=== PATIENT | male | born 1935 | race Caucasian/White ===

== ENCOUNTER → 2020-05-21 16:03 | Outpatient (CLI) | payer MEDICARE, OTHER, SELFPAY ==
[2020-05-21 17:46] LABS: Absolute Lymphocyte Count 1.48 X10^3/uL (0.83-4.51); Absolute Neutrophil Count 4.8 X10^3/uL (2.0-7.7); Basophil# 0.08 X10^3/uL; Basophil% 1.1 % (0-1); Eosinophil# 0.37 X10^3/uL; Eosinophils% 4.9 % (0-5); Hematocrit 40.1 % (40-54); Hemoglobin 12.4 g/dL (13.0-16.5); Lymphocyte # 1.48 X10^3/ul (4.0); Lymphocyte % 19.7 % (19-41); Mean Corp Hgb Conc 30.9 g/dL (32-36); Mean Corpuscular Hgb 28.9 pg (27.0-32.0); Mean Corpuscular Volume 93.5 fL (80-94); Mean Platelet Vol. 12.4 fl (6.2-12.0); Monocyte# 0.81 X10^3/uL; Monocyte% 10.8 % (0-10); NRBC Flagged by Analyzer 0 % (0-5); Neutrophil # 4.76 X10^3/uL (2.7-7.7); Neutrophil % 63.2 % (47-70); Platelet Count 210 K/mm3 (150-450); RBC Distribution Width CV 13.2 % (11.6-14.6); Red Blood Count 4.29 M/mm3 (4.6-6.2); White Blood Count 7.5 K/mm3 (4.4-11.0)
[2020-05-21 17:51] LABS: Vitamin D,25 Hydroxy 57.4 ng/mL
[2020-05-21 17:54] LABS: ALB/GLOB Ratio 0.8 RATIO (0.9-2.4); AST(SGOT) 14 U/L (15-37); Alanine Aminotransfer ALT/SGPT 15 U/L (16-61); Albumin, Serum 3.2 g/dL (3.2-5.0); Alkaline Phosphatase 105 U/L (45-117); Anion Gap 2 (5-15); BUN 21 mg/dL (7-18); BUN/Creat Ratio 14.8 RATIO (10-20); Calcium,Total 8.5 mg/dL (8.5-10.1); Chloride 111 mmol/L (98-107); Creatinine, Serum 1.42 mg/dL (0.70-1.30); EST Glomerular Filtration Rate 50 mL/min (>60); Est Glom Filt Rate - Afr Amer 61 mL/min (>60); Globulin 4.1 g/dL (2.2-4.2); Glucose 89 mg/dL (74-106); PSA,Total - Annual Screen 0.91 ng/mL (0.00-4.00); Potassium 4.2 mmol/L (3.5-5.1); Protein, Total 7.3 g/dL (6.4-8.2); Sodium Level 140 mmol/L (136-145); Thyroid Stim Hormone (TSH) 3.45 uIU/mL (0.358-3.74)
== END ==
PROVIDERS: Visit Provider Family Medicine Geriatric Medicine
DX: E55.9 Vitamin D deficiency, unspecified (principal); R53.83 Other fatigue; Z12.5 Encounter for screening for malignant neoplasm of prostate
CPT/HCPCS: 36415; 80053; 82306; 84153; 84443; 85025; G0103

== ENCOUNTER → 2020-06-03 11:19 | Outpatient (CLI) | payer MEDICARE, OTHER, SELFPAY ==
--- NOTE | 2020-06-03 11:24 | RAD_ITS ---
STUDY: X-RAY - LEFT CLAVICLE REASON FOR EXAM: Male, 84 years old. clavicle pain, shoulder pain TECHNIQUE: 2 view(s) of the clavicle. COMPARISON: None. FINDINGS: Normal clavicle. There is degenerative arthrosis of the acromioclavicular joint without inferior osseous prominence. Normal visualized sternoclavicular articulation. Normal visualized pulmonary apex. RAD/Clavicle IMPRESSION: Acromioclavicular osteoarthritis. Electronically Signed: Marco Antonio Gibbons MD at 17:20 EDT Tel , Service support ,
--- NOTE | 2020-06-03 11:25 | RAD_ITS ---
STUDY: X-RAY CHEST REASON FOR EXAM: Male, 84 years old. shortness of breath TECHNIQUE: Frontal and lateral views of the chest. COMPARISON: None. FINDINGS: The lungs are clear and expanded. There is no demonstrated pleural abnormality. Normal size heart. Normal mediastinum and luna. Normal visualized pulmonary arteries. Normal visualized aortic arch and descending thoracic aorta. Normal visualized thoracic spine. Normal visualized ribs, clavicles, and shoulders. There is no demonstrated abnormality of the visualized soft tissue structures of the upper abdomen. RAD/Chest PA and Lateral IMPRESSION: Normal x-ray examination of the chest. Electronically Signed: Marco Antonio Gibbons MD at 17:02 EDT Tel , Service support ,
== END ==
PROVIDERS: PCP Family Medicine Geriatric Medicine; Referring Provider Family Medicine Geriatric Medicine; Visit Provider Family Medicine Geriatric Medicine
DX: R05 Cough (principal); M25.512 Pain in left shoulder
CPT/HCPCS: 71046; 73000

== ENCOUNTER → 2021-02-04 | Outpatient (CLI) | payer MEDICARE, OTHER, SELFPAY | END | disposition home or self-care (01) | LOC: POLAB3 16:40 → LABSPEC 16:41 | PROVIDERS: PCP Family Medicine Geriatric Medicine; Visit Provider Family Medicine Geriatric Medicine | DX: N39.0 Urinary tract infection, site not specified (principal) | CPT/HCPCS: 87086 ==

== ENCOUNTER → 2021-02-12 12:22 | Outpatient (CLI) | payer MEDICARE, OTHER, SELFPAY ==
--- NOTE | 2021-02-12 12:28 | CT_ITS ---
STUDY: CT ABDOMEN AND PELVIS WITH AND WITHOUT CONTRAST REASON FOR EXAM: Male, 85 years old. 3 week history of gross hematuria. RADIATION DOSAGE (If Supplied By Facility): CTDIvol = ( 20.54 ) mGy, DLP = ( 2641.03 ) mGycm TECHNIQUE: Transaxial images were obtained from the dome of the diaphragm to the symphysis pubis without oral contrast. IV 100mL Isovue-300 was administered. Sagittal and coronal images were reconstructed. Individualized dose optimization techniques were used for this CT. COMPARISON: None. FINDINGS: The visualized lung bases are unremarkable. Coronary artery calcification. Multiple small cysts scattered throughout both the right and left lobes of the liver. Normal gallbladder and extrahepatic biliary system. Normal spleen. Normal pancreas. Normal bilateral adrenal glands. There are multiple right renal cysts. The largest cyst is along the posterior lateral aspect of the right kidney and measures 5.6 cm x 5.7 cm. Multiple cysts are seen in the left kidney as well. The largest cyst measures 2.9 cm x 3 cm. There is also evidence of a parapelvic cyst. There is a small hiatal hernia. Normal small intestine. There are scattered colonic diverticula consistent with diverticulosis. The appendix is visualized and appears normal. There is diffuse atherosclerotic calcification of the abdominal aorta and its major visceral branches. There is evidence of an infrarenal abdominal aortic aneurysm with a transverse dimension of 3.3 cm.. Normal inferior vena cava. There is borderline retroperitoneal lymphadenopathy with enlarged nodes no greater than 10mm in the short axis diameter. There is a partially calcified mass at the base of the bladder measuring 2.3 cm x 2.9 cm. There is enlargement of the prostate with indentation at the bladder base. The prostate measures 5.1 cm x 4.6 cm. It is of heterogeneous density. Small bilateral inguinal hernias containing fat. There are degenerative changes of the visualized lumbar spine. CT/Abdomen/Pelvis WITH Contrast IMPRESSION: Multiple bilateral renal cysts. Infrarenal abdominal aortic aneurysm with a transverse dimension of 3.3 cm. Partially calcified mass at the base of the bladder. Prostatic enlargement with indentation at the bladder base. The prostate is of heterogeneous density. Electronically Signed: Frederic Blackman MD at 13:38 EDT , Service support ,
[2021-02-12 12:40] LABS: CREATININE FINGERSTICK 1.8 mg/dL (0.70-1.30)
== END ==
PROVIDERS: PCP Family Medicine Geriatric Medicine; Referring Provider Family Medicine Geriatric Medicine; Visit Provider Family Medicine Geriatric Medicine
DX: R31.9 Hematuria, unspecified (principal)
CPT/HCPCS: 74177; 87086; Q9967

== ENCOUNTER → 2021-02-18 14:01 | Outpatient (CLI) | payer MEDICARE, OTHER, SELFPAY ==
[2021-02-18 16:22] LABS: Absolute Lymphocyte Count 0.92 X10^3/uL (0.83-4.51); Absolute Neutrophil Count 5.2 X10^3/uL (2.0-7.7); Basophil# 0.04 X10^3/uL; Basophil% 0.5 % (0-1); Eosinophil# 0.65 X10^3/uL; Eosinophils% 8.8 % (0-5); Hematocrit 45.3 % (40-54); Hemoglobin 14.5 g/dL (13.0-16.5); Lymphocyte # 0.92 X10^3/ul (0.83-4.51); Lymphocyte % 12.5 % (19-41); Mean Corpuscular Hgb 29.7 pg (27.0-32.0); Mean Corpuscular Volume 92.8 fL (80-94); Mean Platelet Vol. 12.6 fl (6.2-12.0); Monocyte# 0.59 X10^3/uL; NRBC Flagged by Analyzer 0 % (0-5); Neutrophil # 5.16 X10^3/uL (2.7-7.7); Neutrophil % 69.9 % (47-70); Platelet Count 173 K/mm3 (150-450); RBC Distribution Width SD 44.4 fl (35.1-43.9); Red Blood Count 4.88 M/mm3 (4.6-6.2); White Blood Count 7.4 K/mm3 (4.4-11.0)
[2021-02-18 16:36] LABS: Vitamin D,25 Hydroxy 49.8 ng/mL
[2021-02-18 16:49] LABS: ALB/GLOB Ratio 0.8 RATIO (0.9-2.4); AST(SGOT) 28 U/L (15-37); Alanine Aminotransfer ALT/SGPT 21 U/L (16-61); Albumin, Serum 3.1 g/dL (3.2-5.0); Alkaline Phosphatase 110 U/L (45-117); Anion Gap 6 (5-15); BUN 23 mg/dL (7-18); BUN/Creat Ratio 13.9 RATIO (10-20); Calcium,Total 8.6 mg/dL (8.5-10.1); Chloride 111 mmol/L (98-107); Creatinine, Serum 1.65 mg/dL (0.70-1.30); EST Glomerular Filtration Rate 42 mL/min (>60); Est Glom Filt Rate - Afr Amer 51 mL/min (>60); Globulin 3.8 g/dL (2.2-4.2); Glucose 104 mg/dL (74-106); Potassium 4.6 mmol/L (3.5-5.1); Protein, Total 6.9 g/dL (6.4-8.2); Sodium Level 140 mmol/L (136-145); Thyroid Stim Hormone (TSH) 4.35 uIU/mL (0.358-3.74)
== END ==
PROVIDERS: PCP Family Medicine Geriatric Medicine; Visit Provider Family Medicine Geriatric Medicine
DX: E55.9 Vitamin D deficiency, unspecified (principal); I10 Essential (primary) hypertension; N39.0 Urinary tract infection, site not specified
CPT/HCPCS: 36415; 80053; 82306; 84443; 85025; 87086

== ENCOUNTER 2021-03-12 11:35 | Day surgery (SDC) | payer MEDICARE, OTHER, SELFPAY ==
--- NOTE | 2021-03-10 13:47 | EKG12_ITS ---
Test Reason : PRE OP Blood Pressure : / mmHG Vent. Rate : 068 BPM Atrial Rate : 068 BPM P-R Int : 242 ms QRS Dur : 094 ms QT Int : 396 ms P-R-T Axes : 108 -13 043 degrees QTc Int : 421 ms Sinus rhythm with 1st degree A-V block Otherwise normal ECG Confirmed by TEETEE BUCHANAN, SYED ([id number]), lag screwer LINDSAY MOREL ([id number]) on 03/11/2021 9:35:07 AM Referred By: Andrey Harrison Confirmed By:SYED KINGSLEY MD
[2021-03-10 14:57] LABS: International Normalized Ratio 1.1; Prothrombin Time (Protime)PT. 13.2 SECONDS (11.7-14.9)
[2021-03-10 14:58] LABS: Partial Thromboplast Time 29.9 Seconds (24.1-36.2)
[2021-03-12] VITALS (14 sets, daily range): BP systolic 111–186; BP diastolic 66–93; PULSE 65–78; RESP 16; TEMP 36.4–36.8; O2SAT 93–100; BMI 29.5
[2021-03-12] MEDS: Lactated Ringers 1,000 ML 100 ML IV ×2 (12:22→16:26)
--- NOTE | 2021-03-12 14:18 | HP.PCM_ITS ---
HPI - General HPI Narrative MYLA SAUCEDO, is a 85 M who presents for resection of a large bladder tumor. [facility] Medical History (Updated 03/12/21 @ 14:[address] Andrey Harrison MD) Anxiety Arthritis Back pain Bladder disease Cardiology follow-up encounter COPD (chronic obstructive pulmonary disease) Dementia Depression Excessive bleeding Former smoker High cholesterol History of rheumatic fever History of stress test Hypertension Leg cramps Loss of hearing Thyroid disease Wears glasses Home Medications amlodipine 7.5 mg PO DAILY 03/05/21 [History Last Taken 03/12/21] bupropion HCl 150 mg PO BID 03/05/21 [History Last Taken 03/12/21] cholecalciferol (vitamin D3) [Vitamin D3] 25 mcg PO DAILY 03/05/21 [History Last Taken Unknown] docusate sodium [Stool Softener] 100 mg PO DAILY 03/05/21 [History Last Taken Unknown] levothyroxine 50 mcg PO DAILY 03/05/21 [History Last Taken 03/12/21] potassium 99 mg PO DAILY 03/05/21 [History Last Taken Unknown] ciprofloxacin HCl [Cipro] 500 mg PO BID #14 tab 03/12/21 [Rx Last Taken Unknown] oxycodone-acetaminophen 1 tab PO Q4H PRN 7 Days #14 tab 03/12/21 [Rx Last Taken Unknown] Allergy/AdvReac Type Severity Reaction Status Date / Time clonazepam [From Klonopin] Allergy Itching,RED Verified 03/12/21 12:05 ALL OVER Surgical History (Updated 03/05/21 @ 11:28 by Clementine Whitfield) Hx of colonoscopy Hx of left cataract extraction Hx of right cataract extraction Social History Smoking Status: Former smoker ROS Constitutional Constitutional: Denies chills, fever(s) or malaise Eyes Eyes: Denies blurry vision or change in vision ENT HEENT: Reports none Cardiovascular Cardiovascular: Denies chest pain or palpitations Respiratory/Chest Respiratory/Chest: Denies cough or shortness of breath with exertion Gastrointestinal Gastrointestinal: Denies abdominal pain, constipation or diarrhea Musculoskeletal Musculoskeletal: Denies back pain, joint stiffness or joint swelling Integumentary Integumentary: Denies dry skin, jaundice, lesions or rash Neurologic Neurologic: Denies confusion, syncope or weakness Psychiatric Psychiatric: Reports none; Denies anxiety or depression Endocrine Endocrinology: Denies excessive sweating, fatigue or flushing Hematologic/Lymphatic Hematologic/Lymphatic: Denies anemia, easy bleeding or easy bruising Vital Signs Vital Signs Vital Signs: 03/12/21 12:06 Temperature 98.3 F Temperature Source Temporal Pulse Rate 69 Respiratory Rate 16 Respiratory Pattern Normal Blood Pressure 119/78 Blood Pressure Mean 91 Blood Pressure Source Monitor Blood Pressure Position Semi-Fowlers Blood Pressure Location Right Arm Pulse Ox 96 Oxygen Delivery Method Room Air Weight Weight: 82.8 kg Body Mass Index (BMI) 29.5 Physical Exam Const alert and oriented x3 General Appearance: cooperative HEENT normocephalic, head/scalp atraumatic, EAC's normal and TM's normal bilaterally Eyes PERRL and EOMs intact bilaterally Pupil: sluggish Neck no lymphadenopathy, supple and no JVD General: trachea midline Lymph Lymphatic: no lymphadenopathy noted, lymphedema and lymphadenopathy Resp normal respiratory effort, normal air movement and clear to auscultation bilaterally Cardio regular rate, regular rhythm and peripheral pulses 2+ throughout GI soft to palpation, non-tender and non-distended Extremity normal capillary refill and no clubbing, cyanosis or edema General Extremity: no tenderness to palpation of joints or extremities Skin no rashes or lesions noted General Skin Exam: turgor normal Lesions: no lesions Rashes: no rashes Neuro CN's II-XII intact bilaterally Speech: speech normal Motor Exam: strength 5/5 throughout; Negative for general weakness Psych thought process normal, cooperative and affect normal Appearance: appropriate Assessment & Plan Assessment/Plan (1) Bladder disease: PLAN: Plan to proceed with resection of a large bladder tumor
--- NOTE | 2021-03-12 14:19 | PCM.DC ---
Discharge Instructions Diet Discharge Diet: No restrictions Activity Discharge Activity: Return to Normal Activity and May Not Drive (while taking narcotic pain medications.) Dressing / Incision Call your doctor if you observe: Fever of 101 or Higher Follow Up Care Please Follow Up With: Andrey Harrison MD When: Call [phone] for an appointment Test Results: Test results from this visit will be discussed in further detail at your follow-up appointment, if applicable. Discharge Plan Admission Primary Reason for Your Visit: large bladder tumor Attending Provider: Andrey Harrison Primary Care Provider: Richi Chaudhary [employer] Providers: Partha Tran Discharge Orders/Prescriptions Prescriptions: New ciprofloxacin HCl [Cipro] 500 mg tablet 500 mg PO BID Qty: 14 RF: 0 oxycodone-acetaminophen 5-325 mg tablet 1 tab PO Q4H PRN (Reason: pain) 7 Days Qty: 14 RF: 0 Continued amlodipine 5 mg Tablet 7.5 mg PO DAILY RF: 0 potassium 99 mg Tablet 99 mg PO DAILY RF: 0 docusate sodium [Stool Softener] 100 mg Capsule 100 mg PO DAILY RF: 0 cholecalciferol (vitamin D3) [Vitamin D3] 25 mcg (1,000 unit) Capsule 25 mcg PO DAILY RF: 0 bupropion HCl 150 mg Tablet Extended Release 24 Hr 150 mg PO BID RF: 0 levothyroxine 50 mcg Capsule 50 mcg PO DAILY RF: 0 Referrals / Follow Up: Andrey Harrison MD [STAFF PHYSICIAN] - Richi Chaudhary Chi, MD [Primary Care Provider] - Disposition Disposition (needs filled in before D/C Order can be placed): Home, Self Care
[2021-03-12] MEDS: Cefazolin 2 GM in 0.9% Normal Saline 100 ML IV (14:26)
--- NOTE | 2021-03-12 14:35 | BLB_PTH ---
PATIENT: MYLA SAUCEDO [place] [facility] [place][id number] AGE/SX: 85/M ROOM: RE03/12/[address]: Dr. Andrey Harrison MD : 1935 BED: DIS: 03/12/2021 SPEC #: [id number] RECD: 03/12/21 15:31 STATUS: NINOSKA RE #: [id number] LATOYA: 03/12/21 14:[address]: Andrey Harrison DEPT: SURGICAL PATHOLOGY RECD BY: Mary Newton ENTERED: 03/13/21 08:39 SP TYPE: TURB OTHR DR: MD Dr. Richi Graves Chi, MD Tissues: Urinary bladder, NOS Procedures: Surgery Specimen Level V HEADER OPERATION: Cysto, transurethral resection bladder, [employer] PRE-OP DIAGNOSIS: Bladder disease TISSUE SUBMITTED: Bladder chips MICROSCOPIC DIAGNOSIS Urinary bladder, TUR: Papillary urothelial carcinoma. See cancer checklist below. AM:rg 03/14/2021 COMMENT BLADDER CANCER (TUR) SUMMARY Procedure: Transurethral resection of bladder (TURBT) Tumor site: Not specified Histologic type: Papillary urothelial carcinoma Histologic grade: 3/3 (WHO high grade) Tumor configuration: Papillary Muscularis propria presence: Present and free of carcinoma. Lymphvascular invasion: Not identified Tumor extension: Tumor invades the lamina propria Additional pathologic findings: Extensive tumor necrosis. The above summary is in compliance with [employer] [place] [employer] (CAP) Cancer Protocols Checklist and [place] Joint Committee on Cancer (AJCC), Staging Manual, 8th Ed. Case has been reviewed in consultation with Dr. Hatch who concurs with the above diagnosis. JORGE:HEIDI MICROSCOPIC DESCRIPTION Slides are reviewed. GROSS DESCRIPTION Received in fixative is one container labeled with the patient's name and designated bladder chips. The specimen consists of multiple irregular fragments of slade-brown soft tissue that in aggregate measure 4.5 x 3 x 1 cm. The entire specimen is submitted in five cassettes. / HEIDI:dora 03/13/21 TC:0 CPT: 39681
--- NOTE | 2021-03-12 15:05 | OP.PCM_ITS ---
Report of Operation Date of Procedure: 03/12/21 Pre-Operative Diagnosis: Large bladder tumor, greater than 6 cm in size Post-Operative Diagnosis: Same Surgery/Procedure Performed:: Transurethral resection of a large bladder tumor Description of Surgical Findings:: Patient presented to the hospital for treatment of a tumor that was found in the bladder with a very large bladder tumor. Patient understands is possible it may not be able to resect the entire tumor. Patient also understands is possible that the patient may need multiple procedures or more invasive procedures to cure him of this cancer. Patient was taken back to the operating room after smooth induction of anesthesia the patient was placed supine on the table. The patient was placed in dorsolithotomy position. The urethra and genitals prepped and draped in usu al sterile fashion. I went into the bladder with a 30 degree lens and a cystoscope and identified the tumor the tumor was about 6 centimeters in size and occupying mostly the posterior and dome of the bladder. The right and left ureteral orifice were identified. The tumor was not involved in the ureteral orifice. I then placed the resectoscope and the bladder and resected the entire tumor down to the muscle. And then cauterized the resection base to obtained hemostasis. I then drained the bladder and the patient was taken back to the PACU in stable condition. Surgeon: yessenia Type of Anesthesia: General Admit VTE Documentation VTE Present on Admission: No VTE Mechan Device Prophylaxis: SCD's
--- NOTE | 2021-03-12 15:29 | SUR.PHASEI ---
there is a skin tear to the right side of the upper lip caused by anesthesia in OR.
--- NOTE | 2021-03-12 16:23 | SUR.PHASEI ---
Bladder scan resulted in pt having 35ml of urine detected
[2021-03-12] MEDS: Labetalol (Prefilled) 20 MG/4 ML 5 MG IV (16:33)
== END 2021-03-12 19:16 | disposition home or self-care (01) ==
LOC: SDC 11:36 → AC 11:36
PROVIDERS: Anesthesiology; PCP Family Medicine Geriatric Medicine; Referring Provider Urology; Visit Provider Urology
PROC: 0TBB8ZZ Excision of Bladder, Via Natural or Artificial Opening Endoscopic (ICD-10-PCS; CPT 52240; principal; 2021-03-12 14:25)
DX: C67.9 Malignant neoplasm of bladder, unspecified (principal); I10 Essential (primary) hypertension; E78.00 Pure hypercholesterolemia, unspecified; F03.90 Unspecified dementia, unspecified severity, without behavioral disturbance, psychotic disturbance, mood disturbance, and anxiety; F32.9 Major depressive disorder, single episode, unspecified; F41.9 Anxiety disorder, unspecified; E07.9 Disorder of thyroid, unspecified; H91.90 Unspecified hearing loss, unspecified ear; M19.90 Unspecified osteoarthritis, unspecified site; J44.9 Chronic obstructive pulmonary disease, unspecified; Z79.899 Other long term (current) drug therapy; Z87.891 Personal history of nicotine dependence
CPT/HCPCS: 00912; 52240; 36415; 85610; 85730; 88307; 93005; J7120; J2405

== ENCOUNTER 2021-03-13 07:52 | Emergency (ER) | payer MEDICARE, OTHER, SELFPAY ==
[2021-03-12 12:06] VITALS: BMI 29.5
[2021-03-13 07:53] VITALS: BP 138/76; PULSE 92; RESP 18; TEMP 35.3; O2SAT 89; BMI 29.3
--- NOTE | 2021-03-13 08:00 | EDS_ITS ---
HPI History of Present Illness Chief Complaint: Complaint Informant: patient Onset/Context/Timing Onset: Yesterday Context: Gradual Onset Timing: Continuous Current Severity: Moderate Maximum Severity: Moderate Narrative Narrative: Patient is a 85-year-old male with medical history significant for hypertension dementia presents to the emergency department with urinary retention. The patient states that yesterday, he had scraping of a bladder tumor. He did have a straight cath done and he was discharged from postop. He states since then, he has been unable to urinate. He does describe some abdominal fullness. Denies nausea or vomiting. He states he is otherwise been in his normal state of health. Patient did have borderline hypoxia and has a history of COPD. He states is not on home oxygen. He denies being short of breath. PFSH [facility] Medical History Anxiety Arthritis Back pain Bladder disease Cardiology follow-up encounter COPD (chronic obstructive pulmonary disease) Dementia Depression Excessive bleeding Former smoker High cholesterol History of rheumatic fever History of stress test Hypertension Leg cramps Loss of hearing Thyroid disease Wears glasses Home Medications amlodipine 7.5 mg PO DAILY 03/05/21 [History Last Taken 03/12/21] bupropion HCl 150 mg PO BID 03/05/21 [History Last Taken 03/12/21] cholecalciferol (vitamin D3) [Vitamin D3] 25 mcg PO DAILY 03/05/21 [History Last Taken Unknown] docusate sodium [Stool Softener] 100 mg PO DAILY 03/05/21 [History Last Taken Unknown] levothyroxine 50 mcg PO DAILY 03/05/21 [History Last Taken 03/12/21] potassium 99 mg PO DAILY 03/05/21 [History Last Taken Unknown] ciprofloxacin HCl [Cipro] 500 mg PO BID #14 tab 03/12/21 [Rx Last Taken Unknown] oxycodone-acetaminophen 1 tab PO Q4H PRN 7 Days #14 tab 03/12/21 [Rx Last Taken Unknown] Allergy/AdvReac Type Severity Reaction Status Date / Time clonazepam [From Klonopin] Allergy Itching,RED Verified 03/13/21 07:55 ALL OVER Surgical History Hx of colonoscopy Hx of left cataract extraction Hx of right cataract extraction Social History Smoking Status: Former smoker ROS ROS ED Constitutional Constitutional ED: Denies chills or fever(s) Eyes Eyes: Denies blurry vision or change in vision ENT ENT ED: Denies ear pain or sore throat Cardiovascular Cardiovascular: Denies chest pain or palpitations Respiratory/Chest Respiratory/Chest: Denies cough, dyspnea or dyspnea on exertion Gastrointestinal Gastrointestinal: Denies abdominal pain, nausea or vomiting Genitourinary Genitourinary ED: Reports dysuria Musculoskeletal Musculoskeletal: Denies arthralgias or myalgias Integumentary Denies rash Neurologic Neurologic: Denies headache(s) or paresthesias Psychiatric Psychiatric: Denies anxiety or depression Endocrine Endocrinology: Denies polydipsia or polyuria Allergic/Immunologic Allergic/Immunologic ED: Denies urticaria EXAM Physical Exam Const Vital Signs: 03/13/21 07:53 03/13/21 08:05 Temperature 95.6 F L 99.5 F H Temperature Source Temporal Temporal Pulse Rate 92 Respiratory Rate 18 Blood Pressure 138/76 H Blood Pressure Mean 96 Pulse Ox 89 93 Oxygen Delivery Method Room Air Nasal Cannula Positive well nourished and well developed General Appearance ED: well developed HEENT Reports normocephalic, head/scalp atraumatic and moist mucous membranes Eyes PERRL and EOMs intact bilaterally Neck no lymphadenopathy and supple General: Negative for tenderness Chest Wall inspection of chest normal Resp normal respiratory effort and clear to auscultation bilaterally Cardio regular rate, regular rhythm and no murmurs GI normal to inspection, nondistended, normoactive bowel sounds GI Narrative: Suprapubic fullness without tenderness Palpation: Negative for tender, guarding or rebound tenderness present Back/Spine no CVA tenderness Cervical Spine: Negative for cervical spine tenderness Thoracic Spine / Upper Back: Negative for thoracic spinal tenderness Extremity normal to inspection General Extremety ED: Negative for tenderness Neuro oriented x3 and CN's II-XII intact bilaterally Neuro Narrative: No focal deficits appreciated. Sensorium / Orientation: alert Psych mental status grossly normal Skin no rashes or lesions noted, no wounds and skin turgor normal MDM MDM MDM Narrative Medical decision making narrative: Patient presents with urinary retention. He did have borderline low oxygen in triage. He said no cough shortness of breath. Sitting, the patient was able to come up to 93%. Does not have a fever. He feels well. 16 [place] Abreu catheter was placed with approximately 1 L of urine out. At this point, we will keep the patient with a Abreu in for the next 3 days. He is already on Cipro. He will be discharged home to follow-up with urology. Impression 1. Acute urinary retention Discharge Plan Triage Chief Complaint: Complaint ED Provider: Dale Crawford Dx/Rx/DC Orders Instructions: ED Urinary Retention, Male Prescriptions: No Action amlodipine 5 mg Tablet 7.5 mg PO DAILY RF: 0 potassium 99 mg Tablet 99 mg PO DAILY RF: 0 docusate sodium [Stool Softener] 100 mg Capsule 100 mg PO DAILY RF: 0 cholecalciferol (vitamin D3) [Vitamin D3] 25 mcg (1,000 unit) Capsule 25 mcg PO DAILY RF: 0 bupropion HCl 150 mg Tablet Extended Release 24 Hr 150 mg PO BID RF: 0 levothyroxine 50 mcg Capsule 50 mcg PO DAILY RF: 0 ciprofloxacin HCl [Cipro] 500 mg tablet 500 mg PO BID Qty: 14 RF: 0 oxycodone-acetaminophen 5-325 mg tablet 1 tab PO Q4H PRN (Reason: pain) 7 Days Qty: 14 RF: 0 Primary Care Provider: Richi Chaudhary Chi Referrals: Andrey Harrison MD [STAFF PHYSICIAN] - 3-5 Days Richi Chaudhary Chi, MD [Primary Care Provider] -
[2021-03-13 08:05] VITALS: TEMP 37.5; O2SAT 93
[2021-03-13 08:54] VITALS: O2SAT 91
--- NOTE | 2021-03-13 08:55 | ED.RN ---
pt educated on discharge instructions and scott catheter. pt educated on cath care, and use of a leg bag. pt ambulates out of dept with spouse.
== END 2021-03-13 08:57 | disposition home or self-care (01) ==
PROVIDERS: Emergency Provider Emergency Medicine; PCP Family Medicine Geriatric Medicine
DX: R33.9 Retention of urine, unspecified (principal); I10 Essential (primary) hypertension; E78.00 Pure hypercholesterolemia, unspecified; F03.90 Unspecified dementia, unspecified severity, without behavioral disturbance, psychotic disturbance, mood disturbance, and anxiety; F32.9 Major depressive disorder, single episode, unspecified; F41.9 Anxiety disorder, unspecified; J44.9 Chronic obstructive pulmonary disease, unspecified; E07.9 Disorder of thyroid, unspecified; M19.90 Unspecified osteoarthritis, unspecified site; Z79.899 Other long term (current) drug therapy; Z87.891 Personal history of nicotine dependence
CPT/HCPCS: 51702; 99283

== ENCOUNTER → 2021-04-21 14:10 | Outpatient (CLI) | payer MEDICARE, OTHER, SELFPAY ==
[2021-04-21 15:23] LABS: Hematocrit 43.8 % (40-54); Hemoglobin 13.8 g/dL (13.0-16.5); Mean Corp Hgb Conc 31.5 g/dL (32-36); Mean Corpuscular Hgb 29.5 pg (27.0-32.0); Mean Corpuscular Volume 93.6 fL (80-94); Mean Platelet Vol. 12.2 fl (6.2-12.0); Platelet Count 167 K/mm3 (150-450); RBC Distribution Width CV 13.2 % (11.6-14.6); RBC Distribution Width SD 45.1 fl (35.1-43.9); Red Blood Count 4.68 M/mm3 (4.6-6.2); White Blood Count 7.8 K/mm3 (4.4-11.0)
[2021-04-21 15:58] LABS: ALB/GLOB Ratio 0.9 RATIO (0.9-2.4); AST(SGOT) 16 U/L (15-37); Alanine Aminotransfer ALT/SGPT 19 U/L (16-61); Albumin, Serum 3.5 g/dL (3.2-5.0); Alkaline Phosphatase 105 U/L (45-117); Anion Gap 6 (5-15); BUN 23 mg/dL (7-18); BUN/Creat Ratio 14.9 RATIO (10-20); Calcium,Total 8.7 mg/dL (8.5-10.1); Chloride 108 mmol/L (98-107); Creatinine, Serum 1.54 mg/dL (0.70-1.30); EST Glomerular Filtration Rate 46 mL/min (>60); Est Glom Filt Rate - Afr Amer 55 mL/min (>60); Globulin 3.8 g/dL (2.2-4.2); Glucose 90 mg/dL (74-106); Potassium 4.6 mmol/L (3.5-5.1); Protein, Total 7.3 g/dL (6.4-8.2); Sodium Level 140 mmol/L (136-145)
== END ==
PROVIDERS: PCP Family Medicine Geriatric Medicine; Referring Provider Urology; Visit Provider Urology
DX: Z01.812 Encounter for preprocedural laboratory examination (principal)
CPT/HCPCS: 36415; 80053; 85027

== ENCOUNTER → 2021-04-25 | Outpatient (CLI) | payer MEDICARE, OTHER, SELFPAY ==
--- NOTE | 2021-04-25 | BLB_PTH ---
PATIENT: MYLA SAUCEDO LOC: [facility] U#:[id number] AGE/SX: 85/M ROOM: RE04/25/[address]: Dr. Andrey Harrison MD : 1935 BED: DIS: 04/25/2021 SPEC #: [id number] RECD: 04/25/21 15:02 STATUS: NINOSKA ANA #: [id number] LATOYA: 04/25/21 00:[address]: Andrey Harrison DEPT: SURGICAL PATHOLOGY RECD BY: Burke Crowell ENTERED: 04/28/21 08:06 SP TYPE: TURB OTHR DR: Dr. Richi Chaudhary MD [facility] Tissues: Urinary bladder, NOS Procedures: Surgery Specimen Level V HEADER OPERATION: Transurethral resection bladder tumor PRE-OP DIAGNOSIS: Malignant neoplasm of lateral wall of bladder TISSUE SUBMITTED: Bladder tissue MICROSCOPIC DIAGNOSIS Urinary bladder tumor, TUR: Fibrinopurulent material, necrotic smooth muscle tissue and dystrophic microcalcifications. Focal granulation. Rare fragment of benign urothelium with squamoid features. No evidence of malignancy. AM:dora 04/29/2021 COMMENT Case has been reviewed in consultation with Dr. Hatch who concurs with the above diagnosis. IDC:HEIDI MICROSCOPIC DESCRIPTION Slides are reviewed. GROSS DESCRIPTION Received is one container labeled with the patient's name and not further designated. The specimen consists of a piece of slade-brown soft tissue measuring 1.5 x 1 x 0.3 cm. The entire specimen is submitted in one cassette. / HEIDI:dora 04/28/21 TC:2 CPT: 16041
== END | disposition home or self-care (01) ==
LOC: LABSPEC 15:40
PROVIDERS: PCP Family Medicine Geriatric Medicine; Referring Provider Urology; Visit Provider Urology
DX: D30.3 Benign neoplasm of bladder (principal)
CPT/HCPCS: 88307

== ENCOUNTER → 2021-06-03 15:10 | Outpatient (CLI) | payer MEDICARE, OTHER, SELFPAY ==
--- NOTE | 2021-06-03 15:14 | RAD_ITS ---
STUDY: X-RAY - LEFT FOOT CLINICAL: Male, 85 years old. PAIN IN L FOOT TECHNIQUE: 3 view(s) of the foot. COMPARISON: None. FINDINGS: No acute fracture, dislocation or osseous destruction. No significant joint space narrowing. No significant productive changes. Diffuse soft tissue swelling. IMPRESSION: Soft tissue swelling. No acute fracture or dislocation identified. Distal fibular fracture is better visualized on the ankle radiograph. Electronically Signed: Tristin Jansen MD at 16:38 EDT Tel , Service support , RAD/Foot min 3 Views
--- NOTE | 2021-06-03 15:14 | RAD_ITS ---
STUDY: X-RAY - LEFT ANKLE REASON FOR EXAM: Male, 85 years old. PAIN IN L FOOT TECHNIQUE: 3 view(s) of the ankle. COMPARISON: None. FINDINGS: Acute nondisplaced fracture of the distal fibula with associated soft tissue swelling. The remainder the visualized osseous structures are intact. The soft tissue structures are unremarkable. RAD/Ankle min 3 Views IMPRESSION: Acute nondisplaced fracture of the distal fibula with associated soft tissue swelling. Electronically Signed: Tristin Jansen MD at 16:40 EDT Tel , Service support ,
--- NOTE | 2021-06-03 15:15 | RAD_ITS ---
STUDY: X-RAY - LUMBAR SPINE REASON FOR EXAM: Male, 85 years old. LOW BACK PAIN TECHNIQUE: 3 view(s) of the lumbar spine were obtained. COMPARISON: None FINDINGS: Normal lumbar lordosis. There is no substantial scoliosis. There is a normal alignment of the vertebrae. There is multilevel endplate spondylosis of the lumbar vertebrae. There is multi-level degenerative disc disease with multi-level disc space narrowing. Incompletely characterized aneurysm of the inferior abdominal aorta. Recommend correlation with ultrasound. RAD/Lumbar Spine 2 or 3 Views IMPRESSION: Degenerative changes of the lumbar spine most probably L5-S1. Incompletely characterized aneurysm of the inferior abdominal aorta. Recommend correlation with ultrasound. Electronically Signed: Tristin Jansen MD at 16:40 EDT Tel , Service support ,
[2021-06-03 16:38] LABS: Absolute Lymphocyte Count 1.48 X10^3/uL (0.83-4.51); Absolute Neutrophil Count 5.2 X10^3/uL (2.0-7.7); Basophil# 0.09 X10^3/uL; Basophil% 1.1 % (0-1); Eosinophil# 0.37 X10^3/uL; Eosinophils% 4.7 % (0-5); Hematocrit 42.4 % (40-54); Hemoglobin 13.7 g/dL (13.0-16.5); Lymphocyte # 1.48 X10^3/ul (0.83-4.51); Lymphocyte % 18.7 % (19-41); Mean Corp Hgb Conc 32.3 g/dL (32-36); Mean Corpuscular Hgb 30.2 pg (27.0-32.0); Mean Corpuscular Volume 93.6 fL (80-94); Monocyte% 10.1 % (0-10); NRBC Flagged by Analyzer 0 % (0-5); Neutrophil # 5.17 X10^3/uL (2.7-7.7); Neutrophil % 65.1 % (47-70); Platelet Count 181 K/mm3 (150-450); RBC Distribution Width SD 47.9 fl (35.1-43.9); Red Blood Count 4.53 M/mm3 (4.6-6.2); White Blood Count 7.9 K/mm3 (4.4-11.0)
[2021-06-03 17:13] LABS: Vitamin D,25 Hydroxy 48.9 ng/mL
[2021-06-03 17:26] LABS: ALB/GLOB Ratio 0.8 RATIO (0.9-2.4); AST(SGOT) 16 U/L (15-37); Alanine Aminotransfer ALT/SGPT 19 U/L (16-61); Albumin, Serum 3.1 g/dL (3.2-5.0); Alkaline Phosphatase 106 U/L (45-117); Anion Gap 5 (5-15); BUN 30 mg/dL (7-18); BUN/Creat Ratio 16.7 RATIO (10-20); Calcium,Total 8.6 mg/dL (8.5-10.1); Chloride 112 mmol/L (98-107); EST Glomerular Filtration Rate 38 mL/min (>60); Est Glom Filt Rate - Afr Amer 46 mL/min (>60); Globulin 3.9 g/dL (2.2-4.2); Glucose 99 mg/dL (74-106); Potassium 4.4 mmol/L (3.5-5.1); Sodium Level 142 mmol/L (136-145); Thyroid Stim Hormone (TSH) 2.58 uIU/mL (0.358-3.74)
== END ==
PROVIDERS: PCP Family Medicine Geriatric Medicine; Referring Provider Family Medicine Geriatric Medicine; Visit Provider Family Medicine Geriatric Medicine
DX: M54.5 Low back pain (principal); M79.672 Pain in left foot; E55.9 Vitamin D deficiency, unspecified; I10 Essential (primary) hypertension
CPT/HCPCS: 36415; 72100; 73610; 73630; 80053; 82306; 84443; 85025

== ENCOUNTER → 2021-06-09 13:19 | Outpatient (CLI) | payer MEDICARE, OTHER, SELFPAY ==
[2021-06-09 18:03] LABS: Anion Gap 8 (5-15); BUN 28 mg/dL (7-18); BUN/Creat Ratio 16.9 RATIO (10-20); Calcium,Total 9.1 mg/dL (8.5-10.1); Chloride 111 mmol/L (98-107); Creatinine, Serum 1.66 mg/dL (0.70-1.30); EST Glomerular Filtration Rate 42 mL/min (>60); Est Glom Filt Rate - Afr Amer 51 mL/min (>60); Glucose 84 mg/dL (74-106); Sodium Level 137 mmol/L (136-145)
== END ==
PROVIDERS: PCP Family Medicine Geriatric Medicine; Visit Provider Family Medicine Geriatric Medicine
DX: N18.32 Chronic kidney disease, stage 3b (principal)
CPT/HCPCS: 36415; 80048

== ENCOUNTER → 2021-07-22 | Outpatient (CLI) | payer MEDICARE, OTHER, SELFPAY ==
[2021-07-22 18:09] LABS: Cytology, Body Fluid / CSF SEE PATHOLOGY REPORT
--- NOTE | 2021-07-23 | CYSPIN_PTH ---
PATIENT: MYLA SAUCEDO LOC: [facility] U#:[id number] AGE/SX: 85/M ROOM: RE07/22/[address]: Dr. Andrey Harrison MD : 1935 BED: DIS: 07/22/2021 SPEC #: [id number] RECD: 07/23/21 09:09 STATUS: NINOSKA [place] #: [id number] LATOYA: 07/23/21 00:[address]: Andrey Harrison DEPT: CYTOLOGY RECD BY: Burke Crowell ENTERED: 07/23/21 09:09 SP TYPE: CYSPIN FL OTHR DR: Dr. Richi Chaudhary MD Tissues: Urine Procedures: Pap Stain (control) Special Stain Group II Cytospin Fluid HEADER OPERATION: Not noted PRE-OP DIAGNOSIS: Malignant neoplasm of bladder TISSUE SUBMITTED: Urine for cytology DIAGNOSIS CYTOLOGY Urine for cytology (cytospin): Negative for malignant cells. AM:dora 07/24/2021 CYTOLOGY STUDY Slides are reviewed. CYTOLOGY GROSS Received is 40 ml of yellow cloudy fluid labeled with the patient's name and and designated per the requisition as urine. Submitted for cytology preparation. / dora 07/23/2021 TC:5 CPT: 07704
== END | disposition home or self-care (01) ==
PROVIDERS: PCP Family Medicine Geriatric Medicine; Visit Provider Urology
DX: C67.2 Malignant neoplasm of lateral wall of bladder (principal)
CPT/HCPCS: 88108; 88313

== ENCOUNTER → 2021-07-23 07:17 | Outpatient (CLI) | payer MEDICARE, OTHER, SELFPAY ==
--- NOTE | 2021-07-23 07:21 | US_ITS ---
PROCEDURES: ULTRASOUND AORTA REASON FOR EXAM: Male, 85 years old. AAA TECHNIQUE: Ultrasound evaluation of the aorta was performed with real-time and static heart-scale imaging. COMPARISON: None. FINDINGS: There is no elongation or tortuosity of the abdominal aorta. Aorta measures: Proximal 2.7 cm. Middle 2.8 cm. Distal 2.2 cm. Aorta measure transversely: Proximal 2.2 cm. Middle 2.1 cm. Distal 2.3 cm. Right iliac artery measures: 1.0 cm. Right iliac artery measure transversely: 1. cm. Left iliac artery measures: 1 cm. Left iliac artery measure transversely: 1 cm. There is evidence of an infrarenal fusiform abdominal aortic aneurysm with a transverse dimension of 3.5 cm and longitudinal dimension of 5.4 cm.. US/Aorta IMPRESSION: Fusiform infrarenal abdominal aortic aneurysm with a transverse dimension of 3.5 cm. Electronically Signed: Frederic Blackman MD at 11:11 EDT , Service support ,
[2021-07-23 12:31] LABS: Absolute Lymphocyte Count 1.33 X10^3/uL (0.83-4.51); Absolute Neutrophil Count 5.8 X10^3/uL (2.0-7.7); Basophil# 0.06 X10^3/uL; Basophil% 0.8 % (0-1); Eosinophils% 2.5 % (0-5); Hematocrit 41.1 % (40-54); Hemoglobin 13.2 g/dL (13.0-16.5); Lymphocyte # 1.33 X10^3/ul (0.83-4.51); Lymphocyte % 16.9 % (19-41); Mean Corp Hgb Conc 32.1 g/dL (32-36); Mean Corpuscular Hgb 29.9 pg (27.0-32.0); Mean Platelet Vol. 12.1 fl (6.2-12.0); Monocyte# 0.44 X10^3/uL; Monocyte% 5.6 % (0-10); NRBC Flagged by Analyzer 0 % (0-5); Neutrophil # 5.82 X10^3/uL (2.7-7.7); Neutrophil % 73.9 % (47-70); Platelet Count 217 K/mm3 (150-450); RBC Distribution Width CV 13.4 % (11.6-14.6); RBC Distribution Width SD 46.4 fl (35.1-43.9); Red Blood Count 4.42 M/mm3 (4.6-6.2); White Blood Count 7.9 K/mm3 (4.4-11.0)
[2021-07-23 12:54] LABS: Vitamin D,25 Hydroxy 49.6 ng/mL
[2021-07-23 12:56] LABS: ALB/GLOB Ratio 0.7 RATIO (0.9-2.4); AST(SGOT) 14 U/L (15-37); Alanine Aminotransfer ALT/SGPT 22 U/L (16-61); Albumin, Serum 2.9 g/dL (3.2-5.0); Alkaline Phosphatase 127 U/L (45-117); Anion Gap 6 (5-15); BUN 21 mg/dL (7-18); BUN/Creat Ratio 12.8 RATIO (10-20); Calcium,Total 8.7 mg/dL (8.5-10.1); Chloride 110 mmol/L (98-107); Creatinine, Serum 1.64 mg/dL (0.70-1.30); EST Glomerular Filtration Rate 43 mL/min (>60); Est Glom Filt Rate - Afr Amer 52 mL/min (>60); Globulin 3.9 g/dL (2.2-4.2); Glucose 161 mg/dL (74-106); Protein, Total 6.8 g/dL (6.4-8.2); Sodium Level 140 mmol/L (136-145); Thyroid Stim Hormone (TSH) 2.76 uIU/mL (0.358-3.74)
== END ==
PROVIDERS: PCP Family Medicine Geriatric Medicine; Referring Provider Family Medicine Geriatric Medicine; Visit Provider Family Medicine Geriatric Medicine
DX: I71.4 Abdominal aortic aneurysm, without rupture (principal); E55.9 Vitamin D deficiency, unspecified; I10 Essential (primary) hypertension
CPT/HCPCS: 36415; 76775; 80053; 82306; 84443; 85025

== ENCOUNTER → 2022-02-04 | Outpatient (CLI) | payer MEDICARE, OTHER, SELFPAY ==
[2022-02-04 12:34] LABS: Absolute Lymphocyte Count 1.36 X10^3/uL (0.83-4.51); Absolute Neutrophil Count 5.2 X10^3/uL (2.0-7.7); Basophil# 0.06 X10^3/uL; Basophil% 0.8 % (0-1); Eosinophil# 0.36 X10^3/uL; Eosinophils% 4.7 % (0-5); Hematocrit 41.3 % (40-54); Hemoglobin 13.5 g/dL (13.0-16.5); Lymphocyte # 1.36 X10^3/ul (0.83-4.51); Lymphocyte % 17.6 % (19-41); Mean Corp Hgb Conc 32.7 g/dL (32-36); Mean Corpuscular Hgb 30.5 pg (27.0-32.0); Mean Corpuscular Volume 93.2 fL (80-94); Mean Platelet Vol. 11.9 fl (6.2-12.0); NRBC Flagged by Analyzer 0 % (0-5); Neutrophil # 5.23 X10^3/uL (2.7-7.7); Neutrophil % 67.5 % (47-70); Platelet Count 194 K/mm3 (150-450); RBC Distribution Width SD 47.9 fl (35.1-43.9); Red Blood Count 4.43 M/mm3 (4.6-6.2); White Blood Count 7.7 K/mm3 (4.4-11.0)
[2022-02-04 12:51] LABS: Vitamin D,25 Hydroxy 46.7 ng/mL
[2022-02-04 12:58] LABS: ALB/GLOB Ratio 0.9 RATIO (0.9-2.4); AST(SGOT) 13 U/L (15-37); Alanine Aminotransfer ALT/SGPT 22 U/L (16-61); Albumin, Serum 3.2 g/dL (3.2-5.0); Alkaline Phosphatase 98 U/L (45-117); Anion Gap 7 (5-15); BUN 19 mg/dL (7-18); BUN/Creat Ratio 12.9 RATIO (10-20); Calcium,Total 8.6 mg/dL (8.5-10.1); Chloride 111 mmol/L (98-107); Creatinine, Serum 1.47 mg/dL (0.70-1.30); EST Glomerular Filtration Rate 48 mL/min (>60); Est Glom Filt Rate - Afr Amer 58 mL/min (>60); Globulin 3.5 g/dL (2.2-4.2); Glucose 86 mg/dL (74-106); Potassium 4.2 mmol/L (3.5-5.1); Protein, Total 6.7 g/dL (6.4-8.2); Sodium Level 141 mmol/L (136-145); Thyroid Stim Hormone (TSH) 2.37 uIU/mL (0.358-3.74)
== END | disposition home or self-care (01) ==
LOC: POLAB3 09:48
PROVIDERS: PCP Family Medicine Geriatric Medicine; Visit Provider Family Medicine Geriatric Medicine
DX: I10 Essential (primary) hypertension (principal); E55.9 Vitamin D deficiency, unspecified
CPT/HCPCS: 36415; 80053; 82306; 84443; 85025

== ENCOUNTER → 2022-05-20 | Outpatient (CLI) | payer MEDICARE, OTHER, SELFPAY ==
[2022-05-20 13:00] LABS: Albumin, Serum 3.2 g/dL (3.2-5.0); BUN 18 mg/dL (7-18); BUN/Creat Ratio 11.2 RATIO (10-20); Calcium,Total 8.9 mg/dL (8.5-10.1); Chloride 111 mmol/L (98-107); EST Glomerular Filtration Rate 44 mL/min (>60); Est Glom Filt Rate - Afr Amer 53 mL/min (>60); Glucose 84 mg/dL (74-106); Phosphorus 2.7 mg/dL (2.5-4.9); Potassium 5.1 mmol/L (3.5-5.1); Sodium Level 142 mmol/L (136-145)
== END | disposition home or self-care (01) ==
LOC: POLAB3 12:08
PROVIDERS: PCP Family Medicine Geriatric Medicine; Visit Provider Internal Medicine Nephrology
DX: N18.32 Chronic kidney disease, stage 3b (principal)
CPT/HCPCS: 36415; 80069

== ENCOUNTER → 2022-06-16 | Outpatient (CLI) | payer MEDICARE, OTHER, SELFPAY ==
[2022-06-16 12:35] LABS: Absolute Lymphocyte Count 1.86 X10^3/uL (0.83-4.51); Absolute Neutrophil Count 5.1 X10^3/uL (2.0-7.7); Basophil# 0.07 X10^3/uL; Basophil% 0.8 % (0-1); Eosinophil# 0.63 X10^3/uL; Eosinophils% 7.5 % (0-5); Hemoglobin 13.9 g/dL (13.0-16.5); Lymphocyte # 1.86 X10^3/ul (0.83-4.51); Lymphocyte % 22.1 % (19-41); Mean Corp Hgb Conc 32.3 g/dL (32-36); Mean Corpuscular Hgb 30.4 pg (27.0-32.0); Mean Corpuscular Volume 94.1 fL (80-94); Mean Platelet Vol. 12.2 fl (6.2-12.0); Monocyte# 0.76 X10^3/uL; NRBC Flagged by Analyzer 0 % (0-5); Neutrophil # 5.09 X10^3/uL (2.7-7.7); Neutrophil % 60.4 % (47-70); Platelet Count 183 K/mm3 (150-450); RBC Distribution Width CV 13.1 % (11.6-14.6); RBC Distribution Width SD 44.8 fl (35.1-43.9); Red Blood Count 4.57 M/mm3 (4.6-6.2); White Blood Count 8.4 K/mm3 (4.4-11.0)
[2022-06-16 12:48] LABS: Vitamin D,25 Hydroxy 45.6 ng/mL
[2022-06-16 12:56] LABS: ALB/GLOB Ratio 0.8 RATIO (0.9-2.4); AST(SGOT) 17 U/L (15-37); Alanine Aminotransfer ALT/SGPT 21 U/L (16-61); Albumin, Serum 3.3 g/dL (3.2-5.0); Alkaline Phosphatase 126 U/L (45-117); Anion Gap 7 (5-15); BUN 24 mg/dL (7-18); BUN/Creat Ratio 14.7 RATIO (10-20); Calcium,Total 8.8 mg/dL (8.5-10.1); Chloride 108 mmol/L (98-107); Creatinine, Serum 1.63 mg/dL (0.70-1.30); EST Glomerular Filtration Rate 43 mL/min (>60); Est Glom Filt Rate - Afr Amer 52 mL/min (>60); Globulin 3.9 g/dL (2.2-4.2); Glucose 78 mg/dL (74-106); Phosphorus 2.6 mg/dL (2.5-4.9); Potassium 4.2 mmol/L (3.5-5.1); Protein, Total 7.2 g/dL (6.4-8.2); Sodium Level 141 mmol/L (136-145); Thyroid Stim Hormone (TSH) 2.64 uIU/mL (0.358-3.74)
== END | disposition home or self-care (01) ==
LOC: POLAB3 09:43
PROVIDERS: Internal Medicine Nephrology; PCP Family Medicine Geriatric Medicine; Visit Provider Family Medicine Geriatric Medicine
DX: I12.9 Hypertensive chronic kidney disease with stage 1 through stage 4 chronic kidney disease, or unspecified chronic kidney disease (principal); N18.32 Chronic kidney disease, stage 3b; E55.9 Vitamin D deficiency, unspecified
CPT/HCPCS: 36415; 80053; 82306; 84100; 84443; 85025

== ENCOUNTER → 2022-06-23 | Outpatient (CLI) | payer MEDICARE, OTHER, SELFPAY | END | disposition home or self-care (01) | LOC: LAB.FUTURE 14:08 | PROVIDERS: PCP Family Medicine Geriatric Medicine; Visit Provider Internal Medicine Nephrology | DX: N18.32 Chronic kidney disease, stage 3b (principal) ==

== ENCOUNTER → 2022-06-23 | Outpatient (CLI) | payer MEDICARE, OTHER, SELFPAY | END | disposition home or self-care (01) | LOC: LAB.FUTURE 14:10 | PROVIDERS: PCP Family Medicine Geriatric Medicine; Visit Provider Internal Medicine Nephrology | DX: N18.32 Chronic kidney disease, stage 3b (principal) ==

== ENCOUNTER → 2022-06-25 | Outpatient (CLI) | payer MEDICARE, OTHER, SELFPAY ==
--- NOTE | 2022-06-25 15:44 | US_ITS ---
STUDY: RENAL ULTRASOUND - COMPLETE REASON FOR EXAM: Male, 86 years old. CKD3 TECHNIQUE: Ultrasound evaluation of the kidneys was performed with real-time and static babcock-scale imaging. COMPARISON: None. FINDINGS: RIGHT KIDNEY: Normal location of the right kidney, which is normal in size. The right kidney measures 11.4 cm x 4.57 x 4.5 cm. There is a normal cortex of the right kidney. The renal cortex measures 1.3 cm. Multiple cysts are seen. The largest cyst measures 5.5 sinus by 5.6 cm x 5.8 cm. There are no right renal calculi. There is no right hydronephrosis. DISTAL RIGHT URETER: There is non-visualization of the distal right ureter. There is no demonstrated right ureterovesical junction calculus. There is no demonstrated right ureteral jet. LEFT KIDNEY: Normal location of the left kidney, which is normal in size. The left kidney measures 11.6 cm x 3.7 cm x 4.9 cm. There is a normal cortex of the left kidney. The renal cortex measures 1.5 cm. There are multiple cysts. The largest cyst measures 3.7 cm x 3.3 cm x 3.6 cm. There are no left renal calculi. There is no left hydronephrosis. DISTAL LEFT URETER: There is non-visualization of the distal left ureter. There is no demonstrated left ureterovesical junction calculus. There is a visualized left ureteral jet. BLADDER: The distended urinary bladder has a volume of 63 ml. The empty urinary bladder has a volume of 20 ml. There is a normal wall thickness of the distended urinary bladder. There is no demonstrated mass within the urinary bladder. There are no demonstrated bladder calculi. US/Kidney and Bladder IMPRESSION: Multiple bilateral renal cysts. Electronically Signed: Frederic Blackman MD at 10:03 EDT ,
== END | disposition home or self-care (01) ==
LOC: US 15:42
PROVIDERS: PCP Family Medicine Geriatric Medicine; Referring Provider Internal Medicine Nephrology; Visit Provider Internal Medicine Nephrology
DX: N18.32 Chronic kidney disease, stage 3b (principal)
CPT/HCPCS: 76770

== ENCOUNTER → 2023-02-02 | Outpatient (CLI) | payer MEDICARE, OTHER, SELFPAY ==
[2023-02-02 13:52] LABS: Absolute Neutrophil Count 4.2 X10^3/uL (2.0-7.7); Basophil# 0.06 X10^3/uL; Basophil% 0.9 % (0-1); Eosinophil# 0.35 X10^3/uL; Eosinophils% 5.3 % (0-5); Hematocrit 45.9 % (40-54); Hemoglobin 14.6 g/dL (13.0-16.5); Lymphocyte % 22.7 % (19-41); Mean Corp Hgb Conc 31.8 g/dL (32-36); Mean Corpuscular Volume 94.4 fL (80-94); Mean Platelet Vol. 12.9 fl (6.2-12.0); Monocyte# 0.53 X10^3/uL; NRBC Flagged by Analyzer 0 % (0-5); Neutrophil # 4.17 X10^3/uL (2.7-7.7); Neutrophil % 62.9 % (47-70); Platelet Count 137 K/mm3 (150-450); RBC Distribution Width CV 13.1 % (11.6-14.6); RBC Distribution Width SD 45.6 fl (35.1-43.9); Red Blood Count 4.86 M/mm3 (4.6-6.2); White Blood Count 6.6 K/mm3 (4.4-11.0)
[2023-02-02 14:22] LABS: Vitamin D,25 Hydroxy 102.5 ng/mL
[2023-02-02 14:30] LABS: Albumin, Serum 3.7 g/dL (3.2-5.0); BUN 23 mg/dL (7-18); Calcium,Total 9.1 mg/dL (8.5-10.1); Chloride 109 mmol/L (98-107); Cholesterol 216 mg/dL (200); Creatinine, Serum 1.53 mg/dL (0.70-1.30); EST Glomerular Filtration Rate 46 mL/min (>60); Est Glom Filt Rate - Afr Amer 56 mL/min (>60); Glucose 78 mg/dL (74-106); High Density Lipoprotein 59 mg/dL; Potassium 4.2 mmol/L (3.5-5.1); Sodium Level 142 mmol/L (136-145); Triglycerides 119 mg/dL; Very Low Density Lipoprotein 24 mg/dL (5-40)
== END | disposition home or self-care (01) ==
LOC: POLAB3 11:01
PROVIDERS: PCP Family Medicine Geriatric Medicine; Visit Provider Internal Medicine Nephrology
DX: I12.9 Hypertensive chronic kidney disease with stage 1 through stage 4 chronic kidney disease, or unspecified chronic kidney disease (principal); N18.32 Chronic kidney disease, stage 3b; E55.9 Vitamin D deficiency, unspecified
CPT/HCPCS: 36415; 80061; 80069; 82306; 84443; 85025

== ENCOUNTER → 2023-02-08 | Outpatient (CLI) | payer MEDICARE, OTHER, SELFPAY ==
--- NOTE | 2023-02-08 08:57 | AAAS_ITS ---
Reason For Study: Screening Aorta Measurements Aorta Doppler Measurements Proximal aorta measures2.92 x 2.87cm. in cross- Peak systolic flow velocities within the proximal sectional axis. aorta measure 70.5 cm/sec. Proximal aorta measures3.00cm. in longitudinal Peak systolic flow velocities within the mid aorta axis. measure 57.8 cm/sec. Mid aorta measures3.05 x 2.92cm. in cross- Peak systolic flow velocities within the distal sectional axis. aorta measure 31.8 cm/sec. Mid aorta measures2.97cm. in longitudinal axis. Distal aorta measures4.26 x 4.27cm. in cross- sectional axis. Distal aorta measures4.05cm. in longitudinal axis. Distal true lumen, 2.83 x 3.43 x 2.88 cm. Left Iliac Artery Left iliac artery measures 0.99 x 1.03 cm. in the cross-sectional axis. Left iliac artery measures 0.97 cm. in the longitudinal axis. Peak systolic velocity in the left iliac artery measures 75.7 cm/sec. Right Iliac Artery Right iliac artery measures 1.35 x 1.30 cm. in the cross-sectional axis. Right iliac artery measures 1.38 cm. in the longitudinal axis. Peak systolic velocity in the right iliac artery measures 84.5 cm/sec. Procedure Aorta IVC Iliac vasculature or bypass grafts [id number]. Aorta is tortuous. Exam performed in department. VL/AAA Screening Interpretation Summary Aorta patent, 4.31 cm aneurysm present Bilateral iliac arteries patent, normal caliber. Ordering Physician: Richi Chaudhary Chi Referring Physician: Richi Chaudhary Chi Performed By: Ro Corcoran RVT
== END | disposition home or self-care (01) ==
LOC: CVS 08:55
PROVIDERS: PCP Family Medicine Geriatric Medicine; Referring Provider Family Medicine Geriatric Medicine; Visit Provider Family Medicine Geriatric Medicine
DX: Z13.89 Encounter for screening for other disorder (principal); I71.40 Abdominal aortic aneurysm, without rupture, unspecified; Q25.46 Tortuous aortic arch
CPT/HCPCS: 76706

== ENCOUNTER → 2023-06-21 | Outpatient (CLI) | payer MEDICARE, OTHER, SELFPAY ==
[2023-06-21 11:57] LABS: Absolute Lymphocyte Count 1.66 X10^3/uL (0.83-4.51); Absolute Neutrophil Count 4.7 X10^3/uL (2.0-7.7); Basophil# 0.07 X10^3/uL; Basophil% 0.9 % (0-1); Eosinophil# 0.43 X10^3/uL; Eosinophils% 5.6 % (0-5); Hematocrit 41.6 % (40-54); Hemoglobin 13.2 g/dL (13.0-16.5); Lymphocyte # 1.66 X10^3/ul (0.83-4.51); Lymphocyte % 21.8 % (19-41); Mean Corp Hgb Conc 31.7 g/dL (32-36); Mean Corpuscular Hgb 30.6 pg (27.0-32.0); Mean Corpuscular Volume 96.3 fL (80-94); Mean Platelet Vol. 12.1 fl (6.2-12.0); Monocyte# 0.79 X10^3/uL; Monocyte% 10.4 % (0-10); NRBC Flagged by Analyzer 0 % (0-5); Neutrophil # 4.65 X10^3/uL (2.7-7.7); Platelet Count 144 K/mm3 (150-450); RBC Distribution Width CV 13.6 % (11.6-14.6); RBC Distribution Width SD 48.7 fl (35.1-43.9); Red Blood Count 4.32 M/mm3 (4.6-6.2); White Blood Count 7.6 K/mm3 (4.4-11.0)
[2023-06-21 12:10] LABS: Vitamin D,25 Hydroxy 53.2 ng/mL
[2023-06-21 12:23] LABS: ALB/GLOB Ratio 0.9 RATIO (0.9-2.4); AST(SGOT) 18 U/L (15-37); Alanine Aminotransfer ALT/SGPT 17 U/L (16-61); Albumin, Serum 3.3 g/dL (3.2-5.0); Alkaline Phosphatase 125 U/L (45-117); Anion Gap 9 (5-15); BUN 24 mg/dL (7-18); BUN/Creat Ratio 15.4 RATIO (10-20); Calcium,Total 8.6 mg/dL (8.5-10.1); Chloride 107 mmol/L (98-107); Cholesterol 203 mg/dL (200); Creatinine, Serum 1.56 mg/dL (0.70-1.30); EST Glomerular Filtration Rate 45 mL/min (>60); Est Glom Filt Rate - Afr Amer 54 mL/min (>60); Globulin 3.8 g/dL (2.2-4.2); Glucose 85 mg/dL (74-106); High Density Lipoprotein 59 mg/dL; Potassium 4.3 mmol/L (3.5-5.1); Protein, Total 7.1 g/dL (6.4-8.2); Sodium Level 140 mmol/L (136-145); Thyroid Stim Hormone (TSH) 2.86 uIU/mL (0.358-3.74); Triglycerides 84 mg/dL; Very Low Density Lipoprotein 17 mg/dL (5-40)
== END | disposition home or self-care (01) ==
PROVIDERS: PCP Family Medicine Geriatric Medicine; Visit Provider Family Medicine Geriatric Medicine
DX: I10 Essential (primary) hypertension (principal); E55.9 Vitamin D deficiency, unspecified; E78.5 Hyperlipidemia, unspecified
CPT/HCPCS: 36415; 80053; 80061; 82306; 84443; 85025